=== PATIENT | female | born 1995 ===

== ENCOUNTER 2019-06-05 08:51 | Inpatient (IN) ==
[2019-06-05] MEDS ORDERED: ONDANSETRON 4 MG/2 ML VIAL IV PRN ×2 (09:50→13:58)
[2019-06-05] MEDS ORDERED: LACTATED RINGERS 500 ML IV PRN (09:50)
[2019-06-05] MEDS ORDERED: BUTORPHANOL 2 MG/ML VIAL IV PRN (09:54)
[2019-06-05] MEDS ORDERED: diphenhydrAMINE 50 MG/1 ML VIAL IV PRN (09:57)
[2019-06-05] MEDS ORDERED: CITRIC ACID/SODIUM CITRATE 30 ML UDCUP PO ONE (09:57)
[2019-06-05] MEDS ORDERED: ePHEDrine 50 MG/ML AMP IV PRN (09:57)
[2019-06-05] MEDS ORDERED: PROMETHAZINE 25 MG/1 ML VIAL IM PRN (09:57)
[2019-06-05] MEDS ORDERED: NALOXONE 0.4 MG/ML VIAL IV PRN (09:57)
[2019-06-05] MEDS ORDERED: FAMOTIDINE 20 MG/2 ML VIAL IV ONE (09:57)
[2019-06-05] MEDS ORDERED: hydrOXYzine HCL 25 MG/1 ML VIAL IM PRN (09:57)
[2019-06-05] MEDS ORDERED: OXYTOCIN/LR 20 UNIT/1,000 ML BAG IV SCH (10:00)
[2019-06-05] MEDS: LACTATED RINGERS 1,000 ML IV SCH ×2 (10:09→21:57)
[2019-06-05] MEDS: AMPICILLIN INJ 2,000 MG in SODIUM CHLORIDE 0.9% 100 ML IV SCH ×3 (10:10→23:08)
[2019-06-05 10:16] LABS: Basophils % 0.1 % (0.0-0.8); Eosinophils % 0.4 % (0.00-10.9); Hematocrit 32.3 VOL% (35.7-47.0); Immature Granulocytes % 0.9 %; Immature Granulocytes Absolute 0.07 #; Lymphocytes # 1.4 10*3/uL (1.4-4.0); Lymphocytes % 17.9 % (21.3-54.2); Mean Corpuscular Volume 93.1 FL (87-102); Mean Platelet Volume 12.3 FL (9.6-12.0); Monocytes % 5.6 % (1.7-12.7); Neutrophils % 75.1 % (38.7-73.9); Platelet Count 171 T/CUMM (130-400); Red Blood Count 3.47 MC/CUMM (3.8-5.5); Red Cell Distribution Width 14.6 % (9.3-17.3); White Blood Count 7.7 T/CUMM (4-12)
[2019-06-05 10:44] LABS: Alanine Aminotransferase 20 U/L (13-56); Albumin 2.1 G/DL (3.4-5.0); Alkaline Phosphatase 257 U/L (45-117); Aspartate Amino Transferase 21 U/L (0-37); Bilirubin,Total < 0.39 MG/DL (0.2-1.0); Blood Urea Nitrogen 6 MG/DL (7-18); Calcium 8.6 MG/DL (8.5-10.1); Glucose 73 MG/DL (74-106); Osmolality,Calculated 275.4 MOS/KG (273-304); Total Protein 6.2 G/DL (6.4-8.3)
[2019-06-05] MEDS: fentaNYL 2 MCG/ROPIV 0.2% EPID 100 ML EPIDURAL SCH ×2 (11:01→23:08)
[2019-06-05 12:02] LABS: Apearance,Urine CLEAR (Clear); Bacteria,Urine Occasional /HPF (Few); Bilirubin,Urine Negative (Negative); Blood, Urine Negative (Negative); Glucose,Urine (UA) Negative (Negative); Ketones,Urine Negative (Negative); Mucus,Urine Occasional /LPF (Occasional); Nitrite,Urine Negative (Negative); Protein,Urine Negative; RBC,Urine 1 /HPF (0-4); Squamous Epithelial Cell,Urine Occasional /HPF (0-10); Urine Color Yellow (Yellow); Urine Specific Gravity 1.011 (1.001-1.035); Urine Urobilinogen < 2.0 EU/DL (0.2-1.0); WBC,Urine 1 /HPF (0-6)
[2019-06-05] MEDS ORDERED: TRANEXAMIC ACID 1,000 MG/10 ML VIAL ONE (13:18)
[2019-06-05] MEDS ORDERED: miSOPROStol 200 MCG TABLET ONE (13:18)
[2019-06-05] MEDS ORDERED: METHYLERGONOVINE 0.2 MG/1 ML AMP ONE (13:19)
[2019-06-05] MEDS ORDERED: OXYTOCIN/LR 20 UNIT/1,000 ML BAG IV ONE ×2 (13:19→13:58)
[2019-06-05] MEDS ORDERED: CARBOPROST TROMETHAMINE 250 MCG/ML AMP IM ONE (13:19)
[2019-06-05] MEDS ORDERED: LANOLIN 50% CREAM 0.3 OZ TUBE TOP PRN (13:58)
[2019-06-05] MEDS ORDERED: MEASLES/MUMPS/RUBELLA VACCINE 0.5 ML VIAL SUBCUT ONE (13:58)
[2019-06-05] MEDS ORDERED: RHO(D) IMMUNE GLOBULIN 300 MCG SYRINGE IM ONE (13:58)
[2019-06-05] MEDS ORDERED: BISACODYL 10 MG SUPP RECTAL PRN (13:58)
[2019-06-05] MEDS ORDERED: oxyCODONE/ACETAMINOPHEN 5-325 MG TABLET PO PRN ×2 (13:58)
[2019-06-05] MEDS ORDERED: WITCH HAZEL PADS 100/JAR TOP PRN (13:58)
[2019-06-05] MEDS ORDERED: IBUPROFEN 800 MG TABLET PO PRN (13:58)
[2019-06-05] MEDS ORDERED: DIPH/TET/ACEL PERT BOOSTER VACCINE 0.5 ML VIAL IM ONE (13:58)
[2019-06-05] MEDS ORDERED: HYDROCORTISONE 2.5% RECTAL CREAM 30 GM TUBE TOP PRN (13:58)
[2019-06-05] MEDS ORDERED: ACETAMINOPHEN 325 MG TABLET PO PRN (13:58)
[2019-06-05] MEDS ORDERED: BENZOCAINE 20%/MENTHOL 0.5% SPRAY 56 GM CAN TOP PRN (13:58)
[2019-06-05 14:11] LABS: HIV Antigen/Antibody Result Nonreactive (Nonreactive); Hepatitis B Surface Ag Quant < 0.10 Index; Hepatitis B Surface Ag Result Negative (Negative); Rubella Antibody IgG 8.3 IU/ML
[2019-06-05] MEDS: DOCUSATE SODIUM 100 MG CAPSULE PO SCH (21:45)
[2019-06-06 05:10] LABS: Basophils % 0.1 % (0.0-0.8); Eosinophils # 0.1 10*3/uL (0.0-0.87); Hematocrit 29.8 VOL% (35.7-47.0); Hemoglobin 9.4 GM/DL (12.0-16.0); Immature Granulocytes % 1.1 %; Lymphocytes # 2.1 10*3/uL (1.4-4.0); Mean Corpuscular HGB Conc 31.5 GM/DL (32-36); Mean Corpuscular Volume 91.7 FL (87-102); Mean Platelet Volume 12.8 FL (9.6-12.0); Monocytes % 6.1 % (1.7-12.7); Neutrophils % 69.7 % (38.7-73.9); Platelet Count 151 T/CUMM (130-400); Red Blood Count 3.25 MC/CUMM (3.8-5.5); Red Cell Distribution Width 14.6 % (9.3-17.3); White Blood Count 9.4 T/CUMM (4-12)
[2019-06-06] MEDS: DOCUSATE SODIUM 100 MG CAPSULE PO SCH ×2 (09:35→21:02)
[2019-06-07 07:17] VITALS: BP 130/77
[2019-06-07] MEDS: DOCUSATE SODIUM 100 MG CAPSULE PO SCH (09:05)
[2019-06-07] MEDS ORDERED: MEASLES/MUMPS/RUBELLA VACCINE 0.5 ML VIAL SUBCUT ONE (10:39)
== END 2019-06-07 13:30 | disposition home or self-care (01) | DRG 560 ==
LOC: N.LDOUT 08:51 → N.LD 08:53 → N.OB 16:50
PROVIDERS: ADMIT Obstetrics & Gynecology; ATTEND Obstetrics & Gynecology

== ENCOUNTER 2021-04-21 11:21 | Inpatient (IN) ==
[2021-04-21] MEDS ORDERED: BUTORPHANOL 2 MG/ML VIAL IV PRN (11:57)
[2021-04-21] MEDS ORDERED: BUTORPHANOL 1 MG/ML VIAL IV PRN (11:57)
[2021-04-21] MEDS ORDERED: ONDANSETRON 4 MG/2 ML VIAL IV PRN ×2 (11:57→23:48)
[2021-04-21] MEDS ORDERED: OXYTOCIN/LR 20 UNIT/1,000 ML BAG IV SCH (12:00)
[2021-04-21 12:02] LABS: Bilirubin,Urine Negative (Negative); Blood, Urine Negative (Negative); Glucose,Urine (UA) Negative (Negative); Ketones,Urine Negative (Negative); Mucus,Urine Few /LPF (Occasional); Nitrite,Urine Negative (Negative); Protein,Urine 30 MG/DL; RBC,Urine 14 /HPF (0-4); Squamous Epithelial Cell,Urine Occasional /HPF (0-10); Urine Appearance Slightly Hazy (Clear); Urine Color Yellow (Yellow); Urine Specific Gravity 1.026 (1.001-1.035)
[2021-04-21] MEDS ORDERED: PROMETHAZINE 25 MG/1 ML VIAL IM ONE (12:03)
[2021-04-21] MEDS ORDERED: ePHEDrine 50 MG/ML VIAL IV PRN (12:03)
[2021-04-21] MEDS ORDERED: NALOXONE 0.4 MG/ML VIAL IV PRN (12:03)
[2021-04-21] MEDS ORDERED: ONDANSETRON 4 MG/2 ML VIAL IV ONE (12:03)
[2021-04-21] MEDS ORDERED: LACTATED RINGERS 250 ML IV PRN (12:03)
[2021-04-21] MEDS ORDERED: hydrOXYzine HCL 25 MG/1 ML VIAL IM PRN (12:03)
[2021-04-21] MEDS ORDERED: diphenhydrAMINE 50 MG/1 ML VIAL IV PRN ×2 (12:03)
[2021-04-21] MEDS ORDERED: CITRIC ACID/SODIUM CITRATE 30 ML UDCUP PO ONE (12:05)
[2021-04-21] MEDS ORDERED: FAMOTIDINE 20 MG/2 ML VIAL IV ONE (12:05)
[2021-04-21 12:30] LABS: Basophils % 0.2 % (0.0-0.8); Eosinophils # 0.1 10*3/uL (0.0-0.87); Eosinophils % 0.9 % (0.00-10.9); Hematocrit 31.5 VOL% (35.7-47.0); Hemoglobin 9.6 GM/DL (12.0-16.0); Immature Granulocytes % 1.5 %; Lymphocytes # 1.5 10*3/uL (1.4-4.0); Lymphocytes % 22.4 % (21.3-54.2); Mean Corpuscular HGB Conc 30.5 GM/DL (32-36); Mean Corpuscular Volume 92.9 FL (87-102); Mean Platelet Volume 11.3 FL (9.6-12.0); Monocytes % 5.3 % (1.7-12.7); NRBC # 0.02 10*3/uL; Neutrophils % 69.7 % (38.7-73.9); Platelet Count 178 T/CUMM (130-400); Red Blood Count 3.39 MC/CUMM (3.8-5.5); Red Cell Distribution Width 13.8 % (9.3-17.3); White Blood Count 6.7 T/CUMM (4-12)
[2021-04-21 12:52] LABS: Alanine Aminotransferase 13 U/L (13-56); Albumin 2.2 G/DL (3.4-5.0); Alkaline Phosphatase 303 U/L (45-117); Aspartate Amino Transferase 16 U/L (0-37); Bilirubin,Total < 0.39 MG/DL (0.20-1.00); Blood Urea Nitrogen 8 MG/DL (7-18); Calcium 8.2 MG/DL (8.5-10.1); Carbon Dioxide 23 MMOL/L (21-32); Estimated Glom Filtration Rate 142 ML/MIN; Glucose 67 MG/DL (74-106); Osmolality,Calculated 274.4 MOS/KG (273-304); Potassium 3.6 MMOL/L (3.5-5.1); Sodium 140 MMOL/L (136-145); Total Protein 6.4 G/DL (6.4-8.2)
[2021-04-21] MEDS: LACTATED RINGERS 1,000 ML IV PRN ×2 (13:38→14:13)
[2021-04-21] MEDS: fentaNYL 2 MCG/ROPIV 0.2% EPID 100 ML EPIDURAL SCH ×2 (14:13→20:39)
[2021-04-21 16:06] LABS: Bilirubin,Urine Negative (Negative); Blood, Urine Negative (Negative); Glucose,Urine (UA) Negative (Negative); Ketones,Urine 5 mg/dL (Negative); Mucus,Urine Occasional /LPF (Occasional); Nitrite,Urine Negative (Negative); Protein,Urine 30 MG/DL; RBC,Urine 2 /HPF (0-4); Urine Appearance CLEAR (Clear); Urine Color Yellow (Yellow); Urine Specific Gravity 1.019 (1.001-1.035); Urine Urobilinogen < 2.0 EU/DL (0.2-1.0)
[2021-04-21] MEDS ORDERED: ceFAZolin 2,000 MG/50 ML DUPLEX IV ONE (21:48)
[2021-04-21] MEDS ORDERED: CARBOPROST TROMETHAMINE 250 MCG/ML AMP IM ONE (21:56)
[2021-04-21] MEDS ORDERED: TRANEXAMIC ACID 1,000 MG/10 ML VIAL ONE (21:56)
[2021-04-21] MEDS ORDERED: METHYLERGONOVINE 0.2 MG/1 ML AMP ONE (21:56)
[2021-04-21] MEDS ORDERED: miSOPROStoL 200 MCG TABLET ONE (21:56)
[2021-04-21] MEDS ORDERED: OXYTOCIN 10 UNIT/ML VIAL IM ONE (22:00)
[2021-04-21] MEDS ORDERED: OXYTOCIN/LR 30 UNIT/1,000 ML BAG IV ONE (22:00)
[2021-04-21] MEDS ORDERED: ONDANSETRON 4 MG/2 ML VIAL ONE (22:47)
[2021-04-21] MEDS ORDERED: LIDOCAINE MPF 2% /EPI 20 ML VIAL ONE (22:47)
[2021-04-21] MEDS ORDERED: propofoL 200 MG/20 ML VIAL IV ONE (23:19)
[2021-04-21] MEDS ORDERED: METHYLERGONOVINE 0.2 MG/1 ML AMP IM STA (23:29)
[2021-04-21] MEDS ORDERED: PHENYLEPHRINE 1 MG/10 ML SYRINGE IV ONE (23:34)
[2021-04-21] MEDS ORDERED: KETOROLAC 30 MG/1 ML VIAL ONE (23:45)
[2021-04-21] MEDS ORDERED: LACTATED RINGERS 1,000 ML IV SCH (23:45)
[2021-04-21] MEDS ORDERED: OXYTOCIN/LR 20 UNIT/1,000 ML BAG IV ONE (23:48)
[2021-04-21] MEDS ORDERED: ACETAMINOPHEN 325 MG TABLET PO PRN (23:48)
[2021-04-21] MEDS ORDERED: RHO(D) IMMUNE GLOBULIN 300 MCG SYRINGE IM ONE (23:48)
[2021-04-21 23:50] LABS: Cord Venous Blood HCO3 22.7 MMOL/L; Cord Venous Blood PCO2 41.3 MMHG; Cord Venous Blood PO2 41.4
[2021-04-22] MEDS ORDERED: HYDROmorphone 2 MG/1 ML VIAL IV PRN (02:51)
[2021-04-22] MEDS: ACETAMINOPHEN 500 MG TABLET PO SCH ×4 (03:02→23:17)
[2021-04-22 03:05] LABS: Hematocrit 27.8 VOL% (35.7-47.0); Hemoglobin 8.5 GM/DL (12.0-16.0)
[2021-04-22] MEDS: KETOROLAC 30 MG/1 ML VIAL IV SCH ×3 (06:41→18:41)
[2021-04-22] MEDS: DOCUSATE SODIUM 100 MG CAPSULE PO SCH ×2 (10:46→23:19)
[2021-04-22] MEDS: MULTIVITAMIN (PRENATAL) TABLET PO SCH (10:46)
[2021-04-22 11:25] LABS: Basophils % 0.1 % (0.0-0.8); Eosinophils % 0.1 % (0.00-10.9); Hematocrit 24.8 VOL% (35.7-47.0); Hemoglobin 7.7 GM/DL (12.0-16.0); Immature Granulocytes % 0.6 %; Immature Granulocytes Absolute 0.08 #; Lymphocytes # 1.3 10*3/uL (1.4-4.0); Lymphocytes % 9.4 % (21.3-54.2); Mean Corpuscular Volume 92.5 FL (87-102); Mean Platelet Volume 11.4 FL (9.6-12.0); Monocytes % 3.8 % (1.7-12.7); NRBC # 0.02 10*3/uL; Platelet Count 173 T/CUMM (130-400); Red Blood Count 2.68 MC/CUMM (3.8-5.5); Red Cell Distribution Width 14.2 % (9.3-17.3); White Blood Count 13.4 T/CUMM (4-12)
[2021-04-22] MEDS: FERROUS SULFATE 325 MG TABLET PO SCH ×2 (12:45→23:19)
[2021-04-22] MEDS: SIMETHICONE CHEW 80 MG TABLET PO PRN (23:19)
[2021-04-22] MEDS: MAGNESIUM HYDROXIDE SUSP 30 ML UDCUP PO PRN (23:19)
[2021-04-22] MEDS: METOCLOPRAMIDE 10 MG TABLET PO SCH (23:20)
[2021-04-23 02:34] LABS: Barbiturates Screen,Urine Negative (Negative); Benzodiazepines Screen,Urine Negative (Negative); Opiate Screen,Urine Negative (Negative); Phencyclidine Screen,Urine Negative (Negative)
[2021-04-23 02:35] LABS: Cannabinoid Screen,Urine Positive (Negative)
[2021-04-23] MEDS: IBUPROFEN 800 MG TABLET PO PRN ×2 (04:13→18:46)
[2021-04-23] MEDS: MULTIVITAMIN (PRENATAL) TABLET PO SCH (08:57)
[2021-04-23] MEDS: DOCUSATE SODIUM 100 MG CAPSULE PO SCH ×2 (08:57→22:50)
[2021-04-23] MEDS: FERROUS SULFATE 325 MG TABLET PO SCH ×3 (08:59→22:50)
[2021-04-23] MEDS: METOCLOPRAMIDE 10 MG TABLET PO SCH ×3 (08:59→23:47)
[2021-04-23] MEDS: MAGNESIUM HYDROXIDE SUSP 30 ML UDCUP PO PRN (22:50)
[2021-04-23] MEDS: SIMETHICONE CHEW 80 MG TABLET PO PRN (22:50)
[2021-04-24] MEDS: FERROUS SULFATE 325 MG TABLET PO SCH (08:30)
[2021-04-24] MEDS: METOCLOPRAMIDE 10 MG TABLET PO SCH (08:30)
[2021-04-24] MEDS: DOCUSATE SODIUM 100 MG CAPSULE PO SCH (08:30)
[2021-04-24] MEDS: MULTIVITAMIN (PRENATAL) TABLET PO SCH (09:00)
[2021-04-24 09:01] VITALS: BP 153/78
== END 2021-04-24 14:11 | disposition home or self-care (01) | DRG 540 ==
LOC: N.LDOUT 11:21 → N.LD 11:23 → N.OB 04-22 09:07
PROVIDERS: ADMIT Obstetrics & Gynecology; ATTEND Obstetrics & Gynecology
PROC: LDCSECT (ICD-10-PCS; 2021-04-21 22:59)